=== PATIENT | female | born 1980 | race African-American/Black ===

== ENCOUNTER 2017-04-07 12:01 | Emergency (ER) | payer MEDICAID ==
[~2017-04-07] VITALS: Ht 172.7 cm; Wt 149.0 kg
[~2017-04-07 12:01] MED LIST: CLIN300C11 PO; IBUP-2030 PO
[2017-04-07] MEDS ORDERED: KETOROLAC 60MG/2ML VIAL IM ONE (15:45)
[2017-04-07] MEDS ORDERED: DEXAMETHASONE 10 MG/ML VIAL PO ONE (15:45)
[2017-04-07 16:08] VITALS: BP 140/96
[2017-04-07] MEDS ORDERED: DEXAMETHASONE 10 MG/ML VIAL IM ONE (16:15)
== END 2017-04-07 17:42 | disposition home or self-care (01) ==
LOC: ER 13:25
DX: J02.9 Acute pharyngitis, unspecified (principal); Z88.5 Allergy status to narcotic agent; Z88.0 Allergy status to penicillin
CPT/HCPCS: 81025; 87070; 87430; 96372; 99284; J1885; J1100

== ENCOUNTER 2017-06-18 01:29 | Emergency (ER) | payer MEDICAID ==
[~2017-06-18] VITALS: Ht 172.7 cm; Wt 153.0 kg
[2017-06-18 02:12] VITALS: BP 169/79
== END 2017-06-18 03:40 | disposition home or self-care (01) ==
LOC: ER 01:29
DX: H66.90 Otitis media, unspecified, unspecified ear (principal); Z88.0 Allergy status to penicillin; Z88.5 Allergy status to narcotic agent
CPT/HCPCS: 99283

== ENCOUNTER 2021-06-06 19:40 | Emergency (ER) | payer MEDICAID ==
[~2021-06-06] VITALS: Ht 172.7 cm; Wt 141.0 kg
[~2021-06-06 19:40] MED LIST changes: -CLIN300C11 PO; +CLIN300C12 PO
[2021-06-06 21:30] LABS: BASOPHILS % 0.5 % (0.0-2.0); EOSINOPHILS % 1.9 % (0.0-5.0); HEMATOCRIT. 35.6 % (36.0-48.0); HEMOGLOBIN. 11.3 g/dL (12.0-16.0); LYMPHOCYTES % 29.5 % (20.0-50.0); MEAN CORPUSCULAR HEMOGLOBIN 24.6 pg (28.0-32.0); MEAN CORPUSCULAR VOLUME 77.7 fL (81.0-99.0); MEAN PLATELET VOLUME 8.5 fl (7.4-10.4); MONOCYTES % 7.5 % (2.0-8.0); NEUTROPHILS % 60.6 % (40.0-76.0); PLATELET 315 x1000/uL (130-400); RED BLOOD CELL COUNT 4.58 mill/uL (4.2-5.4); RED CELL DISTRIBUTION WIDTH 16.8 % (11.6-14.6)
[2021-06-06 21:34] LABS: CHLORIDE 109 mEq/L (98-107)
[2021-06-06 22:03] VITALS: BP 169/68
== END 2021-06-06 22:05 | disposition home or self-care (01) ==
LOC: ER 19:40
DX: R60.9 Edema, unspecified (principal); R25.2 Cramp and spasm; Z88.0 Allergy status to penicillin; Z88.5 Allergy status to narcotic agent; Z88.8 Allergy status to other drugs, medicaments and biological substances; Z98.890 Other specified postprocedural states
CPT/HCPCS: 36415; 80053; 83880; 85025; 99283

== ENCOUNTER 2023-12-26 10:37 | Emergency (ER) | payer MEDICAID ==
[~2023-12-26] VITALS: Ht 170.2 cm; Wt 97.5 kg
[~2023-12-26 10:37] MED LIST changes: +CLIN-194 PO; -CLIN300C12 PO
[2023-12-26 11:04] VITALS: O2SAT 100
[2023-12-26] MEDS ORDERED: KETOROLAC 15MG/ML VIAL IM ONE (11:45)
[2023-12-26] MEDS: ACETAMINOPHEN 500MG TABLET PO ONE (12:00)
[2023-12-26] MEDS ORDERED: NAPR-1176 MT (12:56)
[2023-12-26] MEDS ORDERED: LIDO700A15 TP (12:56)
[2023-12-26] MEDS ORDERED: TOPUD MT (13:14)
[2023-12-26 13:28] VITALS: BP 124/84; PULSE 66; RESP 18; TEMP 36.89184; O2SAT 99
== END 2023-12-26 13:29 | disposition home or self-care (01) ==
LOC: ER 11:21
DX: M54.2 Cervicalgia (principal); M54.9 Dorsalgia, unspecified; F12.10 Cannabis abuse, uncomplicated; Z88.8 Allergy status to other drugs, medicaments and biological substances; Z88.5 Allergy status to narcotic agent; Z88.0 Allergy status to penicillin; Z98.890 Other specified postprocedural states; V99.XXXA Unspecified transport accident, initial encounter; Y93.89 Activity, other specified; Y92.89 Other specified places as the place of occurrence of the external cause; Y99.8 Other external cause status
CPT/HCPCS: 99283; 81025; J1885